=== PATIENT | female | born 1975 | race Caucasian/White ===

== ENCOUNTER 2023-02-09 05:33 | Emergency (ER) | payer BC | END 2023-02-09 07:13 | disposition home or self-care (01) | LOC: JP.ED 05:33 | DX: J02.0 Streptococcal pharyngitis (principal); Z20.822 Contact with and (suspected) exposure to COVID-19; Z86.16 Personal history of COVID-19; E03.9 Hypothyroidism, unspecified; Z79.02 Long term (current) use of antithrombotics/antiplatelets; Z79.899 Other long term (current) drug therapy | CPT/HCPCS: 87651-QW; 99283; U0002 ==